=== PATIENT | female | born 1965 | race Caucasian/White ===

== ENCOUNTER 2018-07-31 13:57 | Outpatient (CLI) ==
--- NOTE | 2018-07-31 15:40 | CT ---
EXAM: CT of the right wrist without contrast History: Right wrist pain. Previous right wrist trauma Technique: Multiplanar CT images through the right wrist were obtained without the administration of IV contrast Findings: Mild to moderately displaced, impacted intra-articular fracture of the distal radius which is comminuted and demonstrates ventral apex angulation. The fracture extends to the radiocarpal brandon nt and radial ulnar joint. The fracture is probably subacute as there is some sclerosis of the fract ure fragment margins and some early callus formation. A few of the posterior fracture fragments are extending along the dorsal aspect of the carpus. There is a chronic-appearing fracture of the ulnar styloid. No dislocation. Impression: Subacute intra-articular fracture of the distal right radius as described above.
== END 2018-07-31 13:58 | disposition home or self-care (01) ==
LOC: RAD 13:57
PROVIDERS: ATTEND Orthopaedic Surgery
DX: M25.531 Pain in right wrist (principal)

== ENCOUNTER 2018-09-13 | Outpatient (RCR) | END 2018-09-23 23:59 | DX: S52.531P Colles' fracture of right radius, subsequent encounter for closed fracture with malunion (principal) ==

== ENCOUNTER 2018-10-22 13:00 | Outpatient (RCR) ==
--- NOTE | 2018-09-25 14:04 | RS.OTDNOTE ---
Subjective Date of Note: 09/25/18 Visit #: 4 Number of visits approved by Insurance: 6 Date of Evaluation: 09/13/18 Payer Source: Medicaid Treatment Diagnosis: Right Colles Fracture *Precautions: Edema of digits and limited AROM Current Complaints/Gains: Pt continues stating poor compliance with HEP and applying CP. States she did take her pain medicine x 20 mins prior to therapy. States increased c/o pain but states the retrograde massage feels good. Pain Assessment - Pain Description Pain Location: Digits/wrist are painful due to edema and limited AROM. Current Pain Intensity: 5 Worst Pain Intensity: 9 Modalities - Hot Pack/Cryotherapy Treatment: Cryotherapy Comments:: CP x10 mins Interventions - Exercise/Activities Exercise/Activities/Manual Therapy: Pt ed on positoning for edema cory and retro -grade massage. Tendon glides of roof tops, digit opposition, thumb to palm, claw, and fists making with mod A required to complete. Wrist PROM/gentle stretching, max A of wrist flexion/extension in GE plane, pro/supination and radial/ulnar deviation. Manual therapy x 34+ mins with ROM assessment completed. HOME EXERCISE PROGRAM: Tendon/nerve glides, opposition of digits, positoning, RTG massage, and CP application. - Objective Findings Objective Findings:: Pt has edema of the digits of her RUE hand and wrist - Charges Timed Code Treatment Minutes: 35 Total Treatment Time: 46 Procedures billed for this date of service:: CP MT2 Assessment Patient Education: Education of diagnosis, Body/Joint mechanics, Home Exercise Program, Home Safety, Activity Modification, Education of Plan of Care Patient demonstrates compliance with HEP?: Yes Short Term Goals Goal #1: Pt to be independent with HEP. Goal to be met by: 09/20/18 Progress towards goal: Progressing Goal #2: Pt to decrease edema of digits by .3 CM. Goal to be met by: 09/20/18 Progress towards goal: Met Comments: Edema in wrist Goal #3: Pt to decrease pain to 0-2/10. Goal to be met by: 09/20/18 Progress towards goal: No Change Control Systems Developer Goals Goal #1: Pt to decrease edema of digits to 0.5 CM. Goal to be met by: 09/27/18 Progress towards goal: Progressing Goal #2: Pt to decrease pain to 0/10. Goal to be met by: 09/27/18 Progress towards goal: Regressing Goal #3: Pt to increase AROM to be a full fist. Goal to be met by: 09/27/18 Progress towards goal: Progressing Plan Dates of Control Systems Developer Goals: 09/27/18 Expiration date of current Insurance Approval:: 09/27/18 PLAN: Pt approved x 1 more visit this wk with her insurance. Additional visits requested.
--- NOTE | 2018-09-27 14:19 | RS.OTPN ---
Subjective Date of Note: 09/27/18 Visit #: 5 Number of visits approved by Insurance: 6 Date of Evaluation: 09/13/18 Payer Source: Medicaid Date of Onset/Injury/Change in Status: 07/03/18 Surgery Performed?: Yes Treatment Diagnosis: Right Colles Fracture Treatment Side (optional): Right *Precautions: Edema of digits and limited AROM Prior Level of Function.....Patient was independent with: ADL's, Self Care, Work /Vocation, Caregiving, Ambulation/Mobility, Community Integration/Access History of Condition/Mechanism of Injury: Pt had the accident on 07/03/18 and reported she fell and hurt her RUE. She went to the ER at [facility] and tried to get medical attention. Then she was referred to an orthopaedic surgeon. Level of Function: Pt reports she has trouble with all self cares because she fractured the RUE and she is right hand dominant. Pt reporte extreme difficulty for all on the Upper extremity functional index 0. Functional Limitations: Sleep, Self Care, ADL's, Reaching, Pushing, Pulling, Lifting, Carrying Current Complaints/Gains: Pt is limited in functional use due to having to wear the splint at all times except to shower. Pt has increased her full fist to 80% . Pt has increased her supination to 55 degrees, and pronation to 85 degrees. Pt has increased opposition to all digits easily. Pts RUE wrist extension increased to 15 deg. and RUE wrist flexion is 20 deg. Pt is able to complete ABD /ADD of digits. Mass journalism intern is 1.3# in RUE, and LUE is 45#. Radial flexion is 0 deg. and ulnar flexion is 10 deg. Pain Assessment - Pain Description Pain Location: Digits/wrist are painful due to edema and limited AROM. Pain Description: Not enough pain to talk about Current Pain Intensity: 2-3 Worst Pain Intensity: 8 Other comments regarding pain:: Only when the sharp pain shoots through the forearm does she have pain an 8/10. Functional Outcome Measures UE Functional Index: 81 - G Codes & Severity Modifier G Codes: Carry, Moving, and handling objects. Pt is 81 % impaired. Source of G Code score: Carry, moving, and handling objects.\. CM Observation - Observation Posture: Normal Handedness: Right Shoulder ROM: Bilaterally WFL's Shoulder Muscle Strength: Bilaterally WFL's Elbow ROM: Bilaterally WFL's Elbow Muscle Strength: Bilaterally WFL's Wrist ROM: Left WFL's Wrist Muscle Strength: Left WFL's - Right Wrist/Hand ROM Right Wrist Extension: 15 Right Wrist Flexion: 20 Right Wrist Radial Deviation: 0 Right Wrist Ulnar Deviation: 15 Right Forearm Pronation: 85 Right Forearm Supination: 55 Right Hand ROM: Has opposition with all digits to the thumb. Pt is able to make 80% of a full fist. - Adjunct Instructor In Economics Strength Left Adjunct Instructor In Economics Strength: 45 Right Adjunct Instructor In Economics Strength: 1.3 Palpation Palpation Findings: Tenderness Comments:: Pt has tenderness on the dorsal aspect of the RUE wrist. Sensation Left Upper Extremity: Intact/Normal Sensation Description: Within Normal Limits Modalities - Treatment Modality: Electrical Stim Unattended Parameters/Method Applied: High volt to dorsal RUE forearm to help decrease edema, increase AROM, and decrease stiffness of RUE wrist. Treatment Area: RUE dorsal wrist. Patient Position: Sitting Comments:: High volt to 130 PK volts. - Hot Pack/Cryotherapy Treatment: Cryotherapy Interventions - Exercise/Activities Exercise/Activities/Manual Therapy: Pt ed on positoning for edema cory and retro -grade massage. Tendon glides of roof tops, digit opposition, thumb to palm, claw, and fists making with mod A required to complete. Wrist PROM/gentle stretching, max A of wrist flexion/extension in GE plane, pro/supination and radial/ulnar deviation. Manual therapy x 34+ mins with ROM assessment completed. HOME EXERCISE PROGRAM: Tendon/nerve glides, opposition of digits, positoning, RTG massage, and CP application. - Objective Findings Objective Findings:: Pt has edema of the digits of her RUE hand and wrist and limited AROM of the RUE wrist and digits. - Charges Timed Code Treatment Minutes: 60 Total Treatment Time: 60 Procedures billed for this date of service:: MT x2, Estim, CP Short Term Goals Goal #1: Pt to be independent with HEP. Goal to be met by: 10/11/18 Progress towards goal: Progressing Goal #2: Pt to increase mass journalism intern to 10#. Goal to be met by: 10/11/18 Progress towards goal: Progressing Goal #3: Pt to decrease pain to 0-2/10. Goal to be met by: 10/11/18 (Pain is 2-3) Progress towards goal: Progressing Goal #4: Pt to increase RUE wrist extension to 55 degrees Goal to be met by: 10/11/18 Progress towards goal: Progressing Long-Term Goals Goal #1: Pt to increase RUE wrist AROM to be WFL. Goal to be met by: 10/25/18 Progress towards goal: Progressing Goal #2: Pt to decrease pain to 0/10. Goal to be met by: 10/25/18 Progress towards goal: Progressing Goal #3: Pt to increase hand AROM to be a full fist. Goal to be met by: 10/25/18 Progress towards goal: Progressing Goal #4: Pt to increase RUE mass journalism intern to 45#. Goal to be met by: 10/25/18 Progress towards goal: Progressing Plan Dates of Cloth Hauler Goals: 10/25/18 Expiration date of current Insurance Approval:: 09/27/18 PLAN: Pt to continue with OT 2X wk x 4 weeks to increase her AROM and function to increase her independence of self cares. Frequency: 2 X week Duration: 4 weeks
--- NOTE | 2018-10-01 08:28 | RS.OTDNOTE ---
Subjective Date of Note: 09/30/18 Visit #: 6 Number of visits approved by Insurance: 8 Date of Evaluation: 09/13/18 Payer Source: Medicaid Treatment Diagnosis: Right Colles Fracture *Precautions: Edema of digits and limited AROM Current Complaints/Gains: Pt states she has been performing HEP but not as much as she should and that she has been applying a CP. Pain Assessment - Pain Description Pain Description: Burning, Tightness, Sharp, Throbbing, Aching Pain Location: Digits/wrist are painful due to edema and limited AROM. Pain Description: took 1 1/2 pain pills Current Pain Intensity: 5 Worst Pain Intensity: 8 Modalities - Treatment Modality: Electrical Stim Attended Parameters/Method Applied: To pt tolerance with MT/PROM/gentle stretching of wrist with prolonged stretching of digits/tendon glides. Treatment Area: wrist and hand Patient Position: Sitting - Hot Pack/Cryotherapy Treatment: Cryotherapy (CP x 10 mins) Interventions - Exercise/Activities Exercise/Activities/Manual Therapy: Pt ed on positoning for edema cory and retro -grade massage. Tendon glides of roof tops, digit opposition, thumb to palm, claw, and fists making with mod A required to complete. Wrist PROM/gentle stretching, max A of wrist flexion/extension in GE plane, pro/supination and radial/ulnar deviation. Manual therapy x 37+ mins with ROM assessment completed. HOME EXERCISE PROGRAM: Tendon/nerve glides, opposition of digits, positoning, RTG massage, and CP application. - Objective Findings Objective Findings:: Pt has edema of the digits of her RUE hand and wrist and limited AROM of the RUE wrist and digits. - Charges Timed Code Treatment Minutes: 48 Total Treatment Time: 59 Procedures billed for this date of service:: CP ESTIM(ATTENDED) MT2 Assessment Patient Education: Education of diagnosis, Body/Joint mechanics, Home Exercise Program, Home Safety, Activity Modification, Education of Plan of Care Patient demonstrates compliance with HEP?: Yes Short Term Goals Goal #1: Pt to be independent with HEP. Goal to be met by: 10/11/18 Progress towards goal: Progressing Goal #2: Pt to increase mass boot and shoe repairman to 10#. Goal to be met by: 10/11/18 Progress towards goal: Progressing Goal #3: Pt to decrease pain to 0-2/10. Goal to be met by: 10/11/18 (Pain is 2-3) Progress towards goal: Progressing Goal #4: Pt to increase RUE wrist extension to 55 degrees Goal to be met by: 10/11/18 Progress towards goal: Progressing Longterm Goals Goal #1: Pt to increase RUE wrist AROM to be WFL. Goal to be met by: 10/25/18 Progress towards goal: Progressing Goal #2: Pt to decrease pain to 0/10. Goal to be met by: 10/25/18 Progress towards goal: Progressing Goal #3: Pt to increase hand AROM to be a full fist. Goal to be met by: 10/25/18 Progress towards goal: Progressing Goal #4: Pt to increase RUE mass boot and shoe repairman to 45#. Goal to be met by: 10/25/18 Progress towards goal: Progressing Plan Dates of Field Service Rep Goals: 10/25/18 Expiration date of current Insurance Approval:: 10/25/18 PLAN: Continue per POC to max functional use of (R) UE.
--- NOTE | 2018-10-04 08:42 | RS.OTDNOTE ---
Subjective Date of Note: 10/03/18 Visit #: 7 Number of visits approved by Insurance: 8 Date of Evaluation: 09/13/18 Payer Source: Medicaid Treatment Diagnosis: Right Colles Fracture *Precautions: Edema of digits and limited AROM Current Complaints/Gains: Pt states she is performing HEP but only 1x/day 2* pain. Also states she is applying CP 1-2 times a day. Pt voices increased c/o pain with wrist gentle stretching but little c/o pain with digit PROM-AROM/ tendon glides. Pain Assessment - Pain Description Pain Description: Burning, Tightness, Sharp, Throbbing, Aching Pain Location: Digits/wrist are painful due to edema and limited AROM. Pain Description: took 1 1/2 pain pills Current Pain Intensity: 4 Worst Pain Intensity: 8 Modalities - Hot Pack/Cryotherapy Treatment: Hot Pack, Cryotherapy Interventions - Exercise/Activities Exercise/Activities/Manual Therapy: Pt ed continued for positoning for edema cory and retro-grade massage. Tendon glides of roof tops, digit opposition, thumb to palm, claw, and fists making with mod A required to complete. Wrist PROM/gentle stretching, max A of wrist flexion/extension in GE plane, pro/ supination and radial/ulnar deviation. Manual therapy x 40+ mins with ROM assessment completed. Yellow digi-flex/putty, wrist safety director, 1# hold x 30 secs several times of wrist flexion/extension ex's performed. HOME EXERCISE PROGRAM: Tendon/nerve glides, opposition of digits, positoning, RTG massage, and CP application. - Objective Findings Objective Findings:: Pt has edema of the digits of her RUE hand and wrist and limited AROM of the RUE wrist and digits. - Charges Timed Code Treatment Minutes: 51 Total Treatment Time: 62 Procedures billed for this date of service:: CP EX MT2 Assessment Patient Education: Education of diagnosis, Body/Joint mechanics, Home Exercise Program, Home Safety, Activity Modification, Education of Plan of Care Patient demonstrates compliance with HEP?: No Short Term Goals Goal #1: Pt to be independent with HEP. Goal to be met by: 10/11/18 Progress towards goal: Progressing Goal #2: Pt to increase mass food truck caterer to 10#. Goal to be met by: 10/11/18 Progress towards goal: Progressing Comments: 3# Goal #3: Pt to decrease pain to 0-2/10. Goal to be met by: 10/11/18 Progress towards goal: Progressing Goal #4: Pt to increase RUE wrist extension to 55 degrees Goal to be met by: 10/11/18 Progress towards goal: Progressing Surgery Technician Goals Goal #1: Pt to increase RUE wrist AROM to be WFL. Goal to be met by: 10/25/18 Progress towards goal: Progressing Goal #2: Pt to decrease pain to 0/10. Goal to be met by: 10/25/18 Progress towards goal: Progressing Goal #3: Pt to increase hand AROM to be a full fist. Goal to be met by: 10/25/18 Progress towards goal: Progressing Goal #4: Pt to increase RUE mass food truck caterer to 45#. Goal to be met by: 10/25/18 Progress towards goal: Progressing Plan Dates of Detention Goals: 10/25/18 Expiration date of current Insurance Approval:: 10/25/18 PLAN: Continue per POC to max functional (L) hand use to return to work.
--- NOTE | 2018-10-07 14:48 | RS.OTDNOTE ---
Subjective Date of Note: 10/07/18 Visit #: 8 Number of visits approved by Insurance: Awaiting approvals Date of Evaluation: 09/13/18 Payer Source: Medicaid Treatment Diagnosis: Right Colles Fracture *Precautions: Edema of digits and limited AROM Current Complaints/Gains: Pt states she is out of medicine. States she has been removing brace for a few hrs at a time to "let it breath" Pt ed on precautions and continued PRE's/stretching. Pain Assessment - Pain Description Pain Description: Burning, Tightness, Dull, Throbbing, Aching Pain Location: Digits/wrist are painful due to edema and limited AROM. Modalities - Treatment Modality: Electrical Stim Attended Parameters/Method Applied: Hi-volt to pt tolerance (165v). x20 mins Patient Position: Sitting - Hot Pack/Cryotherapy Treatment: Cryotherapy (CP during estim and following tx) Interventions - Exercise/Activities Exercise/Activities/Manual Therapy: Pt ed continued for positoning for edema cory and retro-grade massage. Tendon glides of roof tops, digit opposition, thumb to palm, claw, and fists making with mod A required to complete. Wrist PROM/gentle stretching, max A of wrist flexion/extension in GE plane, pro/ supination and radial/ulnar deviation. Manual therapy x 40+ mins with ROM assessment completed. Yellow/red digi-flex/putty, wrist global process owner, 1# hold x 30 secs several times of wrist flexion/extension ex's performed. HOME EXERCISE PROGRAM: Tendon/nerve glides, opposition of digits, positoning, RTG massage, and CP application. - Objective Findings Objective Findings:: Pt has edema of the digits of her RUE hand and wrist and limited AROM of the RUE wrist and digits. - Charges Timed Code Treatment Minutes: 58 Total Treatment Time: 58 Procedures billed for this date of service:: CP ESTIM MT EX Assessment Patient Education: Education of diagnosis, Body/Joint mechanics, Home Exercise Program, Home Safety, Activity Modification, Education of Plan of Care Patient demonstrates compliance with HEP?: Yes Short Term Goals Goal #1: Pt to be independent with HEP. Goal to be met by: 10/11/18 Progress towards goal: Partially Met Goal #2: Pt to increase mass tensile tester to 10#. Goal to be met by: 10/11/18 Progress towards goal: Progressing Comments: 5# Goal #3: Pt to decrease pain to 0-2/10. Goal to be met by: 10/11/18 Progress towards goal: Progressing Goal #4: Pt to increase RUE wrist extension to 55 degrees Goal to be met by: 10/11/18 Progress towards goal: Progressing Remote Broadcast Engineer Goals Goal #1: Pt to increase RUE wrist AROM to be WFL. Goal to be met by: 10/25/18 Progress towards goal: Progressing Goal #2: Pt to decrease pain to 0/10. Goal to be met by: 10/25/18 Progress towards goal: Progressing Goal #3: Pt to increase hand AROM to be a full fist. Goal to be met by: 10/25/18 Progress towards goal: Progressing Goal #4: Pt to increase RUE mass tensile tester to 45#. Goal to be met by: 10/25/18 Progress towards goal: Progressing Plan Dates of Remote Broadcast Engineer Goals: 10/25/18 Expiration date of current Insurance Approval:: 10/25/18 PLAN: Pt to continue with HEP and therapy x2 wk/2wks
--- NOTE | 2018-10-10 14:19 | RS.OTDNOTE ---
Subjective Date of Note: 10/10/18 Visit #: 9 Number of visits approved by Insurance: 12 Date of Evaluation: 09/13/18 Payer Source: Medicaid Treatment Diagnosis: Right Colles Fracture *Precautions: Edema of digits and limited AROM Current Complaints/Gains: Pt states she has been removing brace and perfoming more home cory tasks, washing dishes and sweeping more. Pt advised on precautions and donning the splint with act to protect wrist. Pt also states she took x2 pain pills prior to therapy today. Pain Assessment - Pain Description Pain Description: Burning, Tightness, Dull, Throbbing, Aching Pain Location: Digits/wrist are painful due to edema and limited AROM. Pain Description: took 2 pain pills Current Pain Intensity: 2 Worst Pain Intensity: 6 Modalities - Hot Pack/Cryotherapy Treatment: Cryotherapy Comments:: CP X12 mins following tx. Interventions - Exercise/Activities Exercise/Activities/Manual Therapy: Pt ed continued for positoning for edema cory and retro-grade massage. Tendon glides of roof tops, digit opposition, thumb to palm, claw, and fists making with min-[place] A required to complete. Wrist PROM/gentle stretching of wrist flexion/extension in GE/AG plane, pro/ supination and radial/ulnar deviation. Manual therapy x 40+ mins with ROM assessment completed. Yellow/red digi-flex/putty, wrist optical scientist, 1# hold x 30 secs 10/1 of wrist flexion/extension ex's performed. HOME EXERCISE PROGRAM: Tendon/nerve glides, opposition of digits, positoning, RTG massage, and CP application. - Objective Findings Objective Findings:: Pt has edema of the digits of her RUE hand and wrist and limited AROM of the RUE wrist and digits. - Charges Timed Code Treatment Minutes: 54 Total Treatment Time: 59 Procedures billed for this date of service:: CP EX MT2 Assessment Patient Education: Education of diagnosis, Body/Joint mechanics, Home Exercise Program, Home Safety, Activity Modification, Education of Plan of Care Patient demonstrates compliance with HEP?: Yes Short Term Goals Goal #1: Pt to be independent with HEP. Goal to be met by: 10/11/18 Progress towards goal: Partially Met Goal #2: Pt to increase mass addiction medicine physician to 10#. Goal to be met by: 10/11/18 Progress towards goal: Progressing Comments: 7# Goal #3: Pt to decrease pain to 0-2/10. Goal to be met by: 10/11/18 Progress towards goal: Progressing Comments: At rest Goal #4: Pt to increase RUE wrist extension to 55 degrees Goal to be met by: 10/11/18 Progress towards goal: Progressing Consulting It Architect Goals Goal #1: Pt to increase RUE wrist AROM to be WFL. Goal to be met by: 10/25/18 Progress towards goal: Progressing Goal #2: Pt to decrease pain to 0/10. Goal to be met by: 10/25/18 Progress towards goal: Progressing Goal #3: Pt to increase hand AROM to be a full fist. Goal to be met by: 10/25/18 Progress towards goal: Progressing Comments: 85-90% Goal #4: Pt to increase RUE mass addiction medicine physician to 45#. Goal to be met by: 10/25/18 Progress towards goal: Progressing Plan Dates of Consulting It Architect Goals: 10/25/18 Expiration date of current Insurance Approval:: 10/25/18 PLAN: Continue per POC to max UE AROM/strength with decreased c/o pain
--- NOTE | 2018-10-17 15:52 | RS.OTDNOTE ---
Subjective Date of Note: 10/17/18 Visit #: 10 Number of visits approved by Insurance: 12 Date of Evaluation: 09/13/18 Payer Source: Medicaid Treatment Diagnosis: Right Colles Fracture *Precautions: Edema of digits and limited AROM Current Complaints/Gains: Pt states she has been sleeping some without the brace on. States c/o wkness and pain continues. Pain Assessment - Pain Description Pain Description: Burning, Tightness, Dull, Throbbing, Aching Pain Location: Digits/wrist are painful due to edema and limited AROM. Pain Description: took 2 pain pills Modalities - Hot Pack/Cryotherapy Treatment: Cryotherapy Comments:: x10 mins following therapy Interventions - Exercise/Activities Exercise/Activities/Manual Therapy: Pt ed continued for positoning for edema cory and retro-grade massage. Tendon glides of roof tops, digit opposition, thumb to palm, claw, and fists making with min-[place]IK A required to complete. Wrist PROM/gentle stretching of wrist flexion/extension in GE/AG plane, pro/ supination and radial/ulnar deviation. Manual therapy x 40+ mins with ROM assessment completed. Yellow/red digi-flex/putty, wrist unishear operator, 1# hold x 30 secs 10/1 of wrist flexion/extension ex's performed. HOME EXERCISE PROGRAM: Tendon/nerve glides, opposition of digits, positoning, RTG massage, and CP application. - Objective Findings Objective Findings:: Pt has edema of the digits of her RUE hand and wrist and limited AROM of the RUE wrist and digits. - Charges Timed Code Treatment Minutes: 42 Total Treatment Time: 55 Procedures billed for this date of service:: CP EX MT2 Assessment Patient Education: Education of diagnosis, Body/Joint mechanics, Home Exercise Program, Home Safety, Activity Modification, Education of Plan of Care Patient demonstrates compliance with HEP?: Yes Short Term Goals Goal #1: Pt to be independent with HEP. Goal to be met by: 10/11/18 Progress towards goal: Partially Met Goal #2: Pt to increase mass park manager to 10#. Goal to be met by: 10/11/18 Progress towards goal: Progressing Comments: 7-8# Goal #3: Pt to decrease pain to 0-2/10. Goal to be met by: 10/11/18 Progress towards goal: Progressing Goal #4: Pt to increase RUE wrist extension to 55 degrees Goal to be met by: 10/11/18 Progress towards goal: Partially Met Comments: After prolonged stretching and in GE plane Penitentiary Goals Goal #1: Pt to increase RUE wrist AROM to be WFL. Goal to be met by: 10/25/18 Progress towards goal: Progressing Goal #2: Pt to decrease pain to 0/10. Goal to be met by: 10/25/18 Progress towards goal: Progressing Goal #3: Pt to increase hand AROM to be a full fist. Goal to be met by: 10/25/18 Progress towards goal: Progressing Goal #4: Pt to increase RUE mass park manager to 45#. Goal to be met by: 10/25/18 Progress towards goal: Progressing Plan Dates of Uniforms Sales Representative Goals: 10/25/18 Expiration date of current Insurance Approval:: 10/25/18 PLAN: Continue per POC to max fx UE hand use, AROM, and strength.
--- NOTE | 2018-10-21 08:35 | RS.OTDNOTE ---
Subjective Date of Note: 10/18/18 Visit #: 11 Number of visits approved by Insurance: 12 Date of Evaluation: 09/13/18 Payer Source: Medicaid Treatment Diagnosis: Right Colles Fracture *Precautions: Edema of digits and limited AROM Current Complaints/Gains: Pt states she has been removing her brace and performing increased activities with her (R) UE. Pt ed on precautions and continued HEP. Pain Assessment - Pain Description Pain Description: Burning, Tightness, Dull, Throbbing, Aching Pain Location: Digits/wrist are painful due to edema and limited AROM. Pain Description: took 2 pain pills Current Pain Intensity: 2 Worst Pain Intensity: 6 Interventions - Exercise/Activities Exercise/Activities/Manual Therapy: Pt ed continued for positoning for edema cory and retro-grade massage. Tendon glides of roof tops, digit opposition, thumb to palm, claw, and fists making with min-AUGUSTINE A required to complete. Wrist PROM/gentle stretching of wrist flexion/extension in GE/AG plane, pro/ supination and radial/ulnar deviation. Manual therapy x 40+ mins with ROM assessment completed. Yellow/red digi-flex/putty, wrist battery checker, 1# hold x 30 secs 10/1 of wrist flexion/extension ex's performed. HOME EXERCISE PROGRAM: Tendon/nerve glides, opposition of digits, positoning, RTG massage, and CP application. - Objective Findings Objective Findings:: Pt has edema of the digits of her RUE hand and wrist and limited AROM of the RUE wrist and digits. - Charges Timed Code Treatment Minutes: 40 Total Treatment Time: 51 Procedures billed for this date of service:: MT CP EX Assessment Patient Education: Education of diagnosis, Body/Joint mechanics, Home Exercise Program, Home Safety, Activity Modification, Education of Plan of Care Patient demonstrates compliance with HEP?: Yes Short Term Goals Goal #1: Pt to be independent with HEP. Goal to be met by: 10/11/18 Progress towards goal: Partially Met Goal #2: Pt to increase mass facility service associate to 10#. Goal to be met by: 10/11/18 Progress towards goal: Progressing Comments: 8# Goal #3: Pt to decrease pain to 0-2/10. Goal to be met by: 10/11/18 Progress towards goal: Progressing Goal #4: Pt to increase RUE wrist extension to 55 degrees Goal to be met by: 10/11/18 Progress towards goal: Partially Met Belt Builder Helper Goals Goal #1: Pt to increase RUE wrist AROM to be WFL. Goal to be met by: 10/25/18 Progress towards goal: Progressing Goal #2: Pt to decrease pain to 0/10. Goal to be met by: 10/25/18 Progress towards goal: Progressing Goal #3: Pt to increase hand AROM to be a full fist. Goal to be met by: 10/25/18 Progress towards goal: Progressing Goal #4: Pt to increase RUE mass facility service associate to 45#. Goal to be met by: 10/25/18 Progress towards goal: Progressing Plan Dates of Usp Goals: 10/25/18 Expiration date of current Insurance Approval:: 10/25/18 PLAN: Continue per POC x 1 tx session to max fx UE strength and AROM to be able to return to PLOF.
--- NOTE | 2018-10-22 14:54 | RS.OTDNOTE ---
Subjective Date of Note: 10/22/18 Visit #: 12 Number of visits approved by Insurance: 12 Date of Evaluation: 09/13/18 Payer Source: Medicaid Treatment Diagnosis: Right Colles Fracture *Precautions: Edema of digits and limited AROM Current Complaints/Gains: Pt returns to MD on 10/24/18. Pt voices good understanding of continued HEP/PRE's and donning brace but does not follow 100% of time. 0 swelling in digits noted with min in wrist. Pt instructed to also continue with applying CP at home. Pain Assessment - Pain Description Pain Description: Burning, Tightness, Dull, Throbbing, Aching Pain Location: Digits/wrist are painful due to edema and limited AROM. Pain Description: took 2 pain pills Current Pain Intensity: 2 Worst Pain Intensity: 5 Modalities - Treatment Modality: Electrical Stim Unattended Parameters/Method Applied: Hi-volt to pt tolerance x20 mins Patient Position: Sitting - Hot Pack/Cryotherapy Treatment: Cryotherapy Interventions - Exercise/Activities Exercise/Activities/Manual Therapy: Pt ed continued for positoning for edema cory and retro-grade massage. Tendon glides of roof tops, digit opposition, thumb to palm, claw, and fists making with [place] A required to complete. Wrist PROM/gentle stretching of wrist flexion/extension in GE/AG plane, pro/ supination and radial/ulnar deviation. Manual therapy x mins with ROM assessment completed. Yellow/red digi-flex/putty, wrist network specialist, 1# hold x 30 secs 10/1 of wrist flexion/extension ex's performed. HOME EXERCISE PROGRAM: Tendon/nerve glides, opposition of digits, positoning, RTG massage, and CP application. - Objective Findings Objective Findings:: Pt has edema of the digits of her RUE hand and wrist and limited AROM of the RUE wrist and digits. - Charges Timed Code Treatment Minutes: 36 Total Treatment Time: 55 Procedures billed for this date of service:: CP ESTIM EX MT Assessment Patient Education: Education of diagnosis, Body/Joint mechanics, Home Exercise Program, Home Safety, Activity Modification, Education of Plan of Care Patient demonstrates compliance with HEP?: Yes Short Term Goals Goal #1: Pt to be independent with HEP. Goal to be met by: 10/11/18 Progress towards goal: Met Goal #2: Pt to increase mass validation technician to 10#. Goal to be met by: 10/11/18 Progress towards goal: Met Comments: 9# 10# 8# Goal #3: Pt to decrease pain to 0-2/10. Goal to be met by: 10/11/18 Progress towards goal: Not Met Goal #4: Pt to increase RUE wrist extension to 55 degrees Goal to be met by: 10/11/18 Progress towards goal: Partially Met Ivory Carver Goals Goal #1: Pt to increase RUE wrist AROM to be WFL. Goal to be met by: 10/25/18 Progress towards goal: Not Met Goal #2: Pt to decrease pain to 0/10. Goal to be met by: 10/25/18 Progress towards goal: Not Met Goal #3: Pt to increase hand AROM to be a full fist. Goal to be met by: 10/25/18 Progress towards goal: Partially Met Goal #4: Pt to increase RUE mass validation technician to 45#. Goal to be met by: 10/25/18 Progress towards goal: Not Met Plan Dates of Alf Goals: 10/25/18 Expiration date of current Insurance Approval:: 10/25/18 PLAN: Pts insurance approval is out. Pt attended 09/04 visits.
--- NOTE | 2018-10-29 14:08 | RS.OTQKDC ---
OT Discharge Date of Discharge: 10/29/18 Number of Visits: 12 Reason for Discharge: Pt was approved for 12 visits with Leticia. Pt was to return to MD and was educated that with a new order for continued therapy, therapist would apply for more visits. No contact has been made at this time. Pt DC'd from skilled OT services. TG's met. Pt ed on continued PREs.
== END 2018-10-24 23:59 ==
PROVIDERS: ATTEND Orthopaedic Surgery
DX: S52.531P Colles' fracture of right radius, subsequent encounter for closed fracture with malunion (principal)

== ENCOUNTER 2018-12-27 09:44 | Emergency (ER) ==
[2018-12-27 09:54] VITALS: BMI 23.2
[2018-12-27] MEDS ORDERED: LACTATED RINGERS 1,000 ML IV STA (10:10)
[2018-12-27] MEDS ORDERED: TORADOL IM STA (10:11)
--- NOTE | 2018-12-27 10:11 | ED.PDOC ---
General ED Provider: Dr. DIMPLE VELASCO MD Chief Complaint: Abdominal Pain Stated Complaint: right lateral abd/back pain Time Seen by Physician: 10:03 Mode of Arrival: Walk-In Information Source: Patient Exam Limitations: No limitations Nursing and Triage Documentation Reviewed and Agree: Yes Does patient meet sepsis criteria?: No If yes, has appropriate treatment been initiated?: Yes System Inflammatory Response Syndrome: Not Applicable Sepsis Protocol: For patient's 13 years and over: Temp is 96.8 and below OR 101 and greater Pulse >90 BPM Resp >20/minute Acutely Altered Mental Status Are patient's symptoms suggestive of a new infection, such as: -Pneumonia -Skin, Soft Tissue -Endocarditis -UTI -Bone, Joint Infection -Implantable Device -Acute Abdominal Infection -Wound Infection -Meningitis -Blood Stream Catheter Infection -Unknown Review of Systems - Review Of Systems Constitutional: Reports: Other (nausea) Eyes: Reports: No symptoms Ears, Nose, Mouth, Throat: Reports: No symptoms Respiratory: Reports: No symptoms Cardiac: Reports: No symptoms GI: Reports: Abdominal pain (R lat Quad) : Reports: No symptoms Musculoskeletal: Reports: No symptoms Skin: Reports: No symptoms Neurological: Reports: No symptoms Endocrine: Reports: No symptoms Hematologic/Lymphatic: Reports: No symptoms All Other Systems: Reviewed and Negative Past Medical History - Past Medical History Previously Healthy: Yes Endocrine: Reports: None Cardiovascular: Reports: None Respiratory: Reports: None Hematological: Reports: None Gastrointestinal: Reports: Gallstones Genitourinary: Reports: Other (kidney mass last year) Neuro/Psych: Reports: None Musculoskeletal: Reports: None Cancer: Reports: None Last Menstrual Period: n/a - Surgical History General Surgical History: Reports: None - Family History Family History: Reports: None - Social History Smoking Status: Former smoker Hx Substance Use: No Alcohol Screening: None Physical Exam - Physical Exam Appearance: Well-appearing (body odor), No pain distress, Well-nourished Ill-appearing: Mild Pain Distress: Mild Eyes: KARINA, EOMI, Conjunctiva clear ENT: Ears normal, Nose normal, Oropharynx normal Neck: Supple Respiratory: Airway patent Cardiovascular: RRR, Pulses normal, No rub, No murmur GI/: Soft, Nontender, No masses, Bowel sounds normal, No Organomegaly, Tender Musculoskeletal: Normal strength, ROM intact, No edema, No calf tenderness Skin: Warm (no blisters rashes), Dry, Normal color Neurological: Sensation intact, Motor intact, Reflexes intact, Cranial nerves intact, Alert, Oriented Psychiatric: Affect appropriate, Mood appropriate Interpretation - Radiology Interpretation Radiology Interpretation By: ED Physician Radiology Results: Negative Xray Comments: large stool ascending colon Critical Care Note - Critical Care Note Total Time (mins): 0 Course - Course Hematology/Chemistry: 12/27/18 10:20 12/27/18 14:50 Orders, Labs, Meds: Lab Review 12/27/18 12/27/18 12/27/18 10:20 10:20 14:50 WBC 10.84 H RBC 5.05 Hgb 15.8 Hct 43.6 MCV 86.3 MCH 31.3 H MCHC 36.2 H RDW Coeff of Rahel 11.7 Plt Count 327 Immature Gran % (Auto) 0.4 Neut % (Auto) 66.0 Lymph % (Auto) 23.8 [place] % (Auto) 9.3 Eos % (Auto) 0.1 Baso % (Auto) 0.4 Immature Gran # (Auto) 0.0 Neut # (Auto) 7.2 H Lymph # (Auto) 2.6 [place] # (Auto) 1.0 Eos # (Auto) 0.0 Baso # (Auto) 0.0 Sodium 125.4 L 123.9 L Potassium 3.07 L 3.29 L Chloride 78.7 L 83.6 L Carbon Dioxide 29.4 25.4 Anion Gap 20.37 18.19 BUN 29.6 H 30.7 H Creatinine 0.86 0.81 Estimated GFR (MDRD) 69.00 74.00 BUN/Creatinine Ratio 34.41 37.90 Glucose 120.9 H 100.6 Calcium 10.29 H 9.27 Total Bilirubin 0.86 AST 27.4 ALT 21.3 Alkaline Phosphatase 96.0 Total Protein 8.20 Albumin 5.33 H Globulin 2.87 Albumin/Globulin Ratio 1.85 Amylase 64.0 Orders Category Date Time Status IV ACCESS ONCE CARE 12/27/18 10:11 Active AMYLASE Stat LAB 12/27/18 10:20 Completed BMP [BASIC METABOLIC PANEL] Stat LAB 12/27/18 14:50 Completed CBC W/ AUTO DIFF Stat LAB 12/27/18 10:20 Completed CMP [COMPREHENSIVE METABOLIC PANEL] Stat LAB 12/27/18 10:20 Completed Bisacodyl [Dulcolax] MEDS 12/27/18 15:38 Discontinued 10 mg RC ONCE STA Ketorolac Tromethamine [Toradol] MEDS 12/27/18 10:11 Discontinued 60 mg IM ONCE STA Magnesium Citrate [Citrate of Magnesia] MEDS 12/27/18 11:36 Discontinued 5 oz PO ONCE STA Magnesium Citrate [Citrate of Magnesia] MEDS 12/27/18 17:52 Discontinued 5 oz PO ONCE STA Ondansetron HCl/Pf [Zofran 4 mg/2 ml] MEDS 12/27/18 11:59 Discontinued 4 mg IVP ONCE STA Ringers Lactated Solution [Lactated Ringers] 1,000 ml MEDS 12/27/18 10:10 Discontinued IV BOLUS KUB [ABDOMEN 1 VIEW] Stat RADS 12/27/18 10:36 Completed Medications Discontinued Medications Generic Name Dose Route Start Last Admin Trade Name Freq PRN Reason Stop Dose Admin Bisacodyl 10 mg 12/27/18 15:38 12/27/18 15:57 Dulcolax RC 12/27/18 15:39 10 mg ONCE STA Administration Lactated Ringer's 1,000 mls @ 1,000 mls/hr 12/27/18 10:10 12/27/18 10:27 Lactated Ringers IV 12/27/18 11:09 1,000 mls/hr BOLUS STA Administration Ketorolac Tromethamine 60 mg 12/27/18 10:11 12/27/18 10:27 Toradol IM 12/27/18 10:12 60 mg ONCE STA Administration Magnesium Citrate 5 oz 12/27/18 11:36 12/27/18 11:55 Citrate Of Magnesia PO 12/27/18 11:37 5 oz ONCE STA Administration Magnesium Citrate 5 oz 12/27/18 17:52 12/27/18 18:01 Citrate Of Magnesia PO 12/27/18 17:53 5 oz ONCE STA Administration Ondansetron HCl 4 mg 12/27/18 11:59 12/27/18 12:05 Zofran 4 Mg/2 Ml IVP 12/27/18 12:00 4 mg ONCE STA Administration Vital Signs: Temp Pulse Resp BP Pulse Ox 12/27/18 17:51 98.7 F 92 H 20 154/84 H 98 12/27/18 09:46 97.0 F L 126 H 20 115/87 99 Departure - Departure Time of Disposition: 18:22 Disposition: HOME SELF-CARE Discharge Problem: Hyponatremia Abdominal pain Qualifiers: Abdominal location: right upper quadrant Qualified Code(s): R10.11 - Right upper quadrant pain Condition: Good Pt referred to PMD for follow-up: Yes IPMP verified?: No Allergies/Adverse Reactions: Allergies sulfate Allergy (Intermediate, Uncoded 12/27/18 09:54) hives Home Medications: Ambulatory Orders Dicyclomine HCl 20 mg PO Q6H PRN 12/27/18 Ondansetron [Zofran Odt] 4 mg PO Q8H PRN 12/27/18 Transfer Form Completed: No Disposition Discussed With: Patient
--- NOTE | 2018-12-27 11:19 | DI ---
EXAM: KUB HISTORY: Right-sided abdominal pain COMPARISON: None FINDINGS: There is slight excess fecal retention in the right colon. Rectum is clear. Bowel gas pa ttern is within normal limits. No organomegaly or suspicious calcification. Degenerative changes of the lower spine IMPRESSION: 1. Slight excess fecal retention within the right colon. Bowel gas at remains within limits.
[2018-12-27] MEDS ORDERED: CITRATE OF MAGNESIA PO STA ×2 (11:36→17:52)
[2018-12-27] MEDS ORDERED: ZOFRAN 4 MG/2 ML IVP STA (11:59)
[2018-12-27] MEDS ORDERED: DULCOLAX RC STA (15:38)
[2018-12-27 17:52] VITALS: BP 154/84; TEMP 98.7
== END 2018-12-27 19:06 | disposition home or self-care (01) ==
LOC: ED 09:44
DX: R10.11 Right upper quadrant pain (principal); E87.1 Hypo-osmolality and hyponatremia
CPT/HCPCS: 36415; 80048; 80053; 82150; 85025; 96361; 96372; 96374; 99284